=== PATIENT | female | born 1935 | race Caucasian/White ===

== ENCOUNTER 2017-10-02 15:20 | Day surgery (SDC) | payer MEDICARE, BC ==
[~2017-10-02] VITALS: Ht 162.6 cm; Wt 53.2 kg
[2017-10-02 15:37] VITALS: BP 120/61
[2017-10-02] MEDS ORDERED: MIDAZolam 5mg/5ml vial ONE (15:41)
[2017-10-02] MEDS ORDERED: LIDOcaine Viscous 15ml cup ONE (15:41)
[2017-10-02] MEDS ORDERED: fentaNYL/PF 50MCG/1 ML 2ML syringe ONE (15:41)
[2017-10-02] MEDS ORDERED: ATOR10TA87 PO (16:05)
[2017-10-02] MEDS ORDERED: EST1T PO ×2 (16:05)
[2017-10-02] MEDS ORDERED: DIGO125T PO (16:05)
[2017-10-02] MEDS ORDERED: POTA20PA3 PO (16:05)
[2017-10-02] MEDS ORDERED: PANT-47 PO (16:05)
[2017-10-02] MEDS ORDERED: COU2.5T PO ×2 (16:05)
[2017-10-02] MEDS ORDERED: LEVO50TA8 PO (16:05)
[2017-10-02] MEDS ORDERED: ALLO100T PO (16:05)
[2017-10-02] MEDS ORDERED: LACT1CAP65 PO (16:05)
[2017-10-02] MEDS ORDERED: METOPROLOL PO (16:05)
[2017-10-02] MEDS ORDERED: LASIX PO (16:05)
[2017-10-02 16:44] VITALS: BP 130/65
[2017-10-02 16:53] VITALS: BP 125/56
[2017-10-02 17:03] VITALS: BP 126/60
[2017-10-02 17:13] VITALS: BP 121/62
== END 2017-10-02 17:20 | disposition home or self-care (01) ==
LOC: GI LAB 15:20
PROVIDERS: ATTEND Internal Medicine Gastroenterology
DX: K94.23 Gastrostomy malfunction (principal); Y83.8 Other surgical procedures as the cause of abnormal reaction of the patient, or of later complication, without mention of misadventure at the time of the procedure; K20.8 Other esophagitis; K31.89 Other diseases of stomach and duodenum; I48.91 Unspecified atrial fibrillation; I11.0 Hypertensive heart disease with heart failure; J44.9 Chronic obstructive pulmonary disease, unspecified; I50.9 Heart failure, unspecified; I25.10 Atherosclerotic heart disease of native coronary artery without angina pectoris; I25.2 Old myocardial infarction; Z98.61 Coronary angioplasty status; Z86.14 Personal history of Methicillin resistant Staphylococcus aureus infection; Z89.431 Acquired absence of right foot; Z89.421 Acquired absence of other right toe(s); Z79.01 Long term (current) use of anticoagulants; Z79.899 Other long term (current) drug therapy; Z98.62 Peripheral vascular angioplasty status; Z87.891 Personal history of nicotine dependence; Z72.89 Other problems related to lifestyle
CPT/HCPCS: 43246; B4088; G0500; J2250; J3010; J7030; A4620

== ENCOUNTER 2018-03-26 12:26 | Day surgery (SDC) | payer MEDICARE, BC ==
[~2018-03-26] VITALS: Ht 162.6 cm; Wt 55.0 kg
[~2018-03-26 12:26] MED LIST: ALLO100T PO; ATOR10TA87 PO; COU2.5T PO; DIGO125T PO; EST1T PO; LACT1CAP65 PO; LASIX PO; LEVO50TA8 PO; METOPROLOL PO; PANT-47 PO; POTA20PA40 PO
[2018-03-26 12:37] VITALS: BP 129/62
[2018-03-26] MEDS ORDERED: TRAM50TA2 PO (13:02)
[2018-03-26] MEDS ORDERED: MULT-1141 PO (13:02)
[2018-03-26] MEDS ORDERED: OXYC-580 PO (13:03)
== END 2018-03-26 14:07 | disposition home or self-care (01) ==
LOC: GI LAB 12:26
PROVIDERS: ATTEND Internal Medicine Gastroenterology
DX: Z43.1 Encounter for attention to gastrostomy (principal); I48.91 Unspecified atrial fibrillation; I11.0 Hypertensive heart disease with heart failure; I50.9 Heart failure, unspecified; I25.2 Old myocardial infarction; I25.10 Atherosclerotic heart disease of native coronary artery without angina pectoris; J44.9 Chronic obstructive pulmonary disease, unspecified; K21.9 Gastro-esophageal reflux disease without esophagitis; M19.90 Unspecified osteoarthritis, unspecified site; E03.9 Hypothyroidism, unspecified; Z95.0 Presence of cardiac pacemaker; Z87.891 Personal history of nicotine dependence; Z90.49 Acquired absence of other specified parts of digestive tract; Z89.421 Acquired absence of other right toe(s); Z87.2 Personal history of diseases of the skin and subcutaneous tissue; Z72.89 Other problems related to lifestyle; Z90.710 Acquired absence of both cervix and uterus; Z86.39 Personal history of other endocrine, nutritional and metabolic disease; Z79.891 Long term (current) use of opiate analgesic; Z88.2 Allergy status to sulfonamides; Z88.7 Allergy status to serum and vaccine; Z88.1 Allergy status to other antibiotic agents; Z79.01 Long term (current) use of anticoagulants; Z86.74 Personal history of sudden cardiac arrest; Z98.890 Other specified postprocedural states; Z79.899 Other long term (current) drug therapy; Z88.8 Allergy status to other drugs, medicaments and biological substances
CPT/HCPCS: 99201; G0463